=== PATIENT | female | born 1980 | race Caucasian/White ===

== ENCOUNTER 2022-11-28 10:25 | Outpatient (CLI) | payer OTHER, SELFPAY ==
--- NOTE | ~2022-11-28 | US_ITS ---
EXAMINATION: US pelvic complete w TV DATE: 11/28/2022 10:52 INDICATION: Heavy menstrual bleeding Comparison:Ultrasound dated 04/27/2004 TECHNIQUE: Multiple transabdominal and endovaginal sonographic images of the pelvis performed. FINDINGS: The uterus measures 7.6 x 4.2 x 4.5 cm. The endometrial complex measures 4 mm. The right ovary measures 1.9 x 1.3 x 1.5 cm and the left ovary measures 2.9 x 2.8 x 2.1 cm. There is a left ovarian cyst measuring 1.9 cm. There are small follicles in each ovary. Normal doppler signal in both ovaries. There is no free fluid in the pelvis. There are no abnormal masses seen on either side. IMPRESSION: 1. Left ovarian cyst measuring 1.9 cm. Reviewed, dictated and finalized at location B. TRIMMER
== END 2022-11-28 10:26 ==
PROVIDERS: PCP Physician Assistant; Visit Provider Obstetrics & Gynecology
DX: N92.0 Excessive and frequent menstruation with regular cycle (principal); N83.202 Unspecified ovarian cyst, left side
CPT/HCPCS: 76830; 76856

== ENCOUNTER 2025-08-14 00:40 | Day surgery (SDC) | payer OTHER, SELFPAY ==
[2025-07-31 11:27] VITALS: BMI 37.3
[2025-08-14 06:39] VITALS: BMI 39.2
[2025-08-14 06:42] VITALS: BP 151/94; PULSE 88; RESP 20; TEMP 36.5; O2SAT 99
--- NOTE | 2025-08-14 07:00 | WPDANESEPPF ---
Anes - Initial Pre Proc Eval Procedure: Operation Date: 08/14/25 08:00 Proposed Procedures p Screening Colonoscopy - Dayton Guillaume MD Date/Time: 08/14/25 07:00 Surgeon: Dayton Guillaume MD Pre Op Diagnosis: Screening Patient Data Age: 44 Gender: F Height: 1.78 m Weight: 123.9 kg Last Vital Signs Temp 36.5 C 08/14/25 06:42 Pulse 88 08/14/25 06:42 Resp 20 08/14/25 06:42 BP 151/94 H 08/14/25 06:42 Pulse Ox 99 08/14/25 06:42 O2 Del Method Room Air 08/14/25 06:42 Allergies Allergy/AdvReac Type Severity Reaction Status Date / Time amoxicillin Allergy Unknown Hives Verified 08/14/25 06:39 Home Medications ?Medication ?Instructions ?Recorded ?Confirmed ?Type multivitamin with minerals-folic tablet PO Q24H 07/31/25 History acid 120 mcg chewable tablet (Adult Multivitamin Gummies) omeprazole 20 mg capsule,delayed 20 mg PO DAILY 07/31/25 08/14/25 History release amlodipine 2.5 mg tablet mg 08/14/25 History Patient hx anesthesia problems: none Family hx anesthesia problems: none Results Review: All pre-operative results and documents have been reviewed as part of the pre-operative evaluation. [facility] Social History Social History Smoking status: Former smoker Alcohol intake: current Drinks per week: 5 Substance use: never Substance use type: does not use Living arrangements: with friend(s) Spiritual care concerns: No Anes - Eval Final PreProcedure Day of Procedure 08/14/25 07:00 Patient weight: obese Heart: regular rate and rhythm Lungs: clear to auscultation Airway: Mallampati scale class II Neurological: alert and oriented Last oral intake: >/= 8 hours ASA classification: II Emergent: no Anesthetic plan: proceed Anesthesia type and monitoring: general GIVS and standard monitoring Results Review: All pre-operative results and documents have been reviewed as part of the pre-operative evaluation. Informed Consent: The patient's anesthetic plan and its attendant risks and benefits were discussed with the patient/family/POA. Questions were solicited and answers provided to the satisfaction of the patient/family/POA.
[2025-08-14] MEDS: LACTATED RINGERS 1,000 ML 150 ML IV CONT (07:03)
--- NOTE | 2025-08-14 07:34 | PM.IMHP ---
H&P: HPI History of Present Illness Date/Time: 08/14/25 07:34 Chief Complaint: Screening colonoscopy Narrative: This is the patient's first colonoscopy. There are no GI symptoms and there is no family history of colorectal cancer. Review of Systems Review of Systems: All systems reviewed & are unremarkable except as noted in HPI and below [facility] Social History Social History Smoking status: Former smoker Alcohol intake: current Drinks per week: 5 Substance use: never Substance use type: does not use Living arrangements: with friend(s) Spiritual care concerns: No Meds Home Medications and Allergies Home Medications ?Medication ?Instructions ?Recorded ?Confirmed ?Type multivitamin with minerals-folic tablet PO Q24H 07/31/25 History acid 120 mcg chewable tablet (Adult Multivitamin Gummies) omeprazole 20 mg capsule,delayed 20 mg PO DAILY 07/31/25 08/14/25 History release amlodipine 2.5 mg tablet mg 08/14/25 History Allergies Allergy/AdvReac Type Severity Reaction Status Date / Time amoxicillin Allergy Unknown Hives Verified 08/14/25 06:39 Vital Signs Vital Signs - 24 hr 08/14/25 06:42 Temperature 97.7 F Pulse Rate 88 Respiratory Rate 20 Blood Pressure 151/94 H Pulse Oximetry 99 Oxygen Delivery Room Air Exam Const: General: cooperative and healthy appearing Resp: Effort & Inspection: normal respiratory effort and able to speak in complete sentences Auscultation: clear to auscultation bilaterally Cardio: Rate: regular rate Rhythm: regular rhythm GI: Inspection: normal to inspection GI Palp: No No hepatosplenomegaly present Auscultation: normal bowel sounds Rectal Exam: deferred Skin: General skin exam: normal color Psych: Appearance: grossly normal Mental Status: mental status grossly normal Assessment and Plan Assessment and plan (1) Encounter for screening colonoscopy: Code(s): Z12.11 - Encounter for screening for malignant neoplasm of colon Status: Acute Assessment and Plan: The patient is deemed a good candidate for the procedure. Consent signed. Will proceed.
[2025-08-14 08:20] VITALS: BP 120/76; PULSE 75; RESP 20; O2SAT 98
[2025-08-14 08:30] VITALS: BP 127/84; PULSE 68; RESP 20; O2SAT 100
[2025-08-14 08:40] VITALS: BP 129/87; PULSE 65; RESP 20; O2SAT 99
--- OUTSIDE RECORDS SUMMARY | 2025-08-14 16:00 | XMS_ITS | Encounter Summary ---
Author Organization [facility] Address [address] [place] [address] Care Team Providers Care Racing Secretary And Handicapper Name Role Phone Kesha Snow Primary Care Provider + [phone] Encounter Details Date Type Department Care Team (Late st Contact Info) Description 05/10/2022 [employer] Message Enc [facility] Family & Internal Medicine [facility] [id number] [place] [phone] [facility] Provider Lab work Social History Tobacco Use Types Packs/Day Years Used Date Smoking Tobacco: Former Cigarettes 0.3 1 1 11/2018 - 09/2020 Smokeless Tobacco: Never Alcohol Use Standard Drinks/Week Comments Yes 28.3 (1 standard drink = 0.6 oz pure alcohol) Socially PHQ-2 Answer Date Recorded PHQ-2 Score - If the patient scores above 3, please move on to questions 3-9 0 02/21/2022 Comments No Sex and Gender Information Value Date Recorded Sex Assigned at Not on file Legal Sex Female 11:05 AM RESEARCH INTERVIEWER Gender Identity Not on file Sexual Orientation Not on file documented as of this encounter Plan of Treatment Not on file documented as of this encounter Visit Diagnoses Diagnosis Encounter for surveillance of injectable contraceptive- Primary Surveillance of other previously prescribed contraceptive method documented in this encounter Care Teams Racing Secretary And Handicapper Relationship Specialty [place] [address] [place] [address] PCP - General PHYSICIAN FINANCIAL AIDS OFFICER 11/18/19 documented as of this encounter
--- OUTSIDE RECORDS SUMMARY | 2025-08-14 16:00 | XMS_ITS | Encounter Summary ---
Author Organization [facility] Address [address] [place] [address] Care Team Providers Care Personnel Director Name Role Phone Kesha Snow Primary Care Provider + [phone] Encounter Details Date Type Department Care Team (Late st Contact Info) Description 10/15/2022 [employer] Message Enc [facility] Family & Internal Medicine [facility] [id number] [place] [phone] Kesha Snow [place] [id number] [place], [place] [phone] cyst Social History Tobacco Use Types Packs/Day Years [...] on file Legal Sex Female 11:05 AM EXHAUST EMISSIONS INSPECTOR Gender Identity Not on file Sexual Orientation Not on file documented as of this encounter Plan of Treatment Not on file documented as of this encounter Visit Diagnoses Not on filedocumented in this encounter Care Teams Personnel Director Relationship Specialty Start Date End Date Kesha Snow [place] [id number] [place] [address] [place] [address] PCP - General PHYSICIAN ROTOR PLATE WASHER 11/18/19 documented as of this encounter
--- OUTSIDE RECORDS SUMMARY | 2025-08-14 16:00 | XMS_ITS | Encounter Summary ---
Author Organization [facility] Address [address] [place] [address] Care Team Providers Care Cloth Calender Name Role Phone Kesha Snow Primary Care Provider + [phone] Encounter Details Date Type Department Care Team (Late st Contact Info) Description 11/09/2022 [employer] Message Enc [facility] Medical Group Family & Internal Medicine [address] [address] Kesha Snow PA [address] [place] [address] Antibiotic Social History Tobacco Use Types Packs/Day Years Used Date Smoking Tobacco: Former Cigarettes 0.3 1 11/2018 - 09/2020 Smokeless Tobacco: Never [...] on file Legal Sex Female 11:05 AM OFFICE ADMINISTRATOR Gender Identity Not on file Sexual Orientation Not on file COVID-19 Exposure Response Date Recorded In the last 10 days, have yo u been in contact with someone who was confirmed or suspected to have Coronavirus/COVID-19? No / Unsure 11/09/2022 8:18 AM OFFICE ADMINISTRATOR documented as of this encounter Plan of Treatment Not on file documented as of this encounter Visit Diagnoses Not on filedocumented in this encounter Care Teams Cloth Calender Relationship Specialty [place] [address] [place] [address] PCP - General PHYSICIAN REFRIGERATED CARGO CLERK 11/18/19 documented as of this encounter
--- OUTSIDE RECORDS SUMMARY | 2025-08-14 16:00 | XMS_ITS | Encounter Summary ---
Author Organization [facility] Address [address] [place] [address] Care Team Providers Care Debarker Operator Name Role Phone Kesha Snow Primary Care Provider + [phone] Encounter Details Date Type Department Care Team (Late st Contact Info) Description 02/22/2022 SnapSense Message Enc [facility] Medical Group Family & Internal Medicine [facility] [phone] [place] [phone] Kesha Snow PA [address] [place] [address] control Social History Tobacco Use Types Packs/Day Years [...] on file Legal Sex Female 11: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 No / Unsure 02/21/2022 1:06 PM CDT documented as of this encounter Plan of Treatment Not on file documented as of this encounter Visit Diagnoses Diagnosis Magallon's esophagus with dysplasia- Primary Magallon's esophagus documented in this encounter Care Teams Debarker Operator Relationship Specialty [place] [address] [place] [address] PCP - General PHYSICIAN BREASTER 11/18/19 documented as of this encounter
--- OUTSIDE RECORDS SUMMARY | 2025-08-14 16:00 | XMS_ITS | Encounter Summary ---
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
--- OUTSIDE RECORDS SUMMARY | 2025-08-14 16:00 | XMS_ITS | Encounter Summary ---
Author Organization [facility] Address [address] [place] [address] Care Team Providers Care Coding Coordinator Name Role Phone Paulina Mcneill NP Primary Care Provider [phone] Courtney Baires NP Unavailable [phone] Encounter Details Date Type Department Care Team (Late st Contact Info) Description 07/22/2025 Results Follow-Up [facility] Medical Group Primary Care at [address] [address] Pan Avery MD [address] [place] [address] [address] [place] [address] CBC with auto differential, Differential, auto, LH, Additional followed-up results: 11 Social History Tobacco Use Types Packs/Day Years Used Date Smoking Tobacco: Former Cigarettes 0.3 5 0 10/09/2015 - 09/08/2020 Smokeless Tobacco: Never Comments:social Alcohol Use Standard Drinks/Week Comments Yes 12 (1 standard drink = 0.6 oz pu re alcohol) AUDIT-C Answer Date Recorded Frequency of Alcohol Consumption 4 or more times a week 05/16/2019 Average Number of Drinks 1 or 2 019 Frequency of Binge Drinking Never 05/2019 PHQ-2 Answer Date Recorded PHQ-2 Total Score (If total score is 3 or more points, staff should administer the PHQ-9) 0 07/22/2025 Comments No Sex and Gender Information Value Date Recorded Sex Assigned at Not on file Legal Sex Female 7:31 AM SWITCHBOARD OPERATOR RECEPTIONIST Gender Identity Female 07/22/2025 12:33 PM CDT Sexual Orientation Straight 07/22/2025 12 :33 PM CDT documented as of this encounter Functional Status * BP Location Answer Date of Assessment Author Left arm 07/22/2025 9:04 AM CDT Jenny Minaya MA * BP Location Answer Date of Assessment Author Left arm 07/22/2025 9:04 AM CDT Jenny Minaya MA documented as of this encounter Plan of Treatment Not on file documented as of this encounter Visit Diagnoses Not on filedocumented in this encounter Care Teams Coding Coordinator Relationship Specialty Start Date End Date Paulina Mcneill NP [address] [facility] [address] [place] [address] PCP - General Family Medicine 07/01/24 Courtney Baires NP [address] [place] [address] [address] [place] [address] Nurse Practitioner Obstetrics and Gynecology 07/22/25 documented as of this encounter
--- OUTSIDE RECORDS SUMMARY | 2025-08-14 16:00 | XMS_ITS | Encounter Summary ---
Author Organization [facility] Healthcare Address [address] [place] [address] Care Team Providers Care Administrative Director Name Role Phone Nadir Edgar MD Primary Care Provider Paulina Mcneill NP Primary Care Provider [phone] Courtney Baires NP Unavailable [phone] Encounter Details Date Type Department Care Team (Late st Contact Info) Description 06/16/2019 Documentation [facility] Case Management [address] [place] [address] Leslye Casey RN Social History Tobacco Use Types Packs/Day Years Used Date Smoking Tobacco: Former Cigarettes 2 002 - 05/16/2019 Smokeless Tobacco: Never Comments:social Alcohol Use Standard Drinks/Week Comments Yes 12 (1 standard drink = 0.6 oz pu re alcohol) AUDIT-C Answer Date Recorded Frequency of Alcohol Consumption 4 or more times a week 05/16/2019 Average Number of Drinks 1 or 2 019 Frequency of Binge Drinking Never 05/2019 Comments Unknown Sex and Gender Information Value Date Recorded Sex Assigned at Not on file Legal Sex Female 7:31 AM APPLICATION SPECIALIST Gender Identity Female 07/22/2025 12:33 PM CDT Sexual Orientation Straight 07/22/2025 12 :33 PM CDT documented as of this encounter Plan of Treatment Not on file documented as of this encounter Visit Diagnoses Not on filedocumented in this encounter Additional Health Concerns Infection Onset Date Last Indicated Resolved Time COVID: Suspected 10/03/2024 10/03/2024 10/03/2024 6:21 PM APPLICATION SPECIALIST COVID: Suspected 10/08/2024 10/08/2024 10/08/2024 8:50 AM APPLICATION SPECIALIST documented as of this encounter Care Teams Administrative Director Relationship Specialty Start Date End Date Nadir Edgar MD PCP - General Internal Medicine 02/04/19 06/30/24 Paulina Mcneill NP [address] [place] [address] PCP - General Family Medicine 07/01/24 Courtney Baires NP [address] [place] [address] [address] [place] [address] Nurse Practitioner Obstetrics and Gynecology 07/22/25 documented as of this encounter
--- OUTSIDE RECORDS SUMMARY | 2025-08-14 16:00 | XMS_ITS | Encounter Summary ---
Author Organization [facility] Address [address] [place] [address] Care Team Providers Care Window Glazier Name Role Phone Kesha Snow Primary Care Provider + [phone] Encounter Details Date Type Department Care Team (Late st Contact Info) Description 08/13/2022 [employer] Message Enc [facility] Medical Group Family & Internal Medicine [facility] [id number] [place] [phone] Kesha Snow PA [address] [place] [address] control Social History Tobacco Use Types [...] on file Legal Sex Female 11:05 AM CNC MILL PROGRAMMER Gender Identity Not on file Sexual Orientation Not on file documented as of this encounter Plan of Treatment Not on file documented as of this encounter Visit Diagnoses Diagnosis Encounter for initial prescription of contraceptive pills General counseling for prescription of oral contraceptives Magallon's esophagus with dysplasia Magallon's esophagus documented in this encounter Care Teams Window Glazier Relationship Specialty [place] [address] [place] [address] PCP - General PHYSICIAN INTENSIVE CARE ANAESTHETIST 11/18/19 documented as of this encounter
--- OUTSIDE RECORDS SUMMARY | 2025-08-14 16:00 | XMS_ITS | Clinical Summary ---
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 acidophilus-dig enz cmb 5 5-250 mg capsule Take by mouth Active multivitamin with minerals tablet Take 1 tablet by mouth daily Active amLODIPine (NORVASC) 5 mg tabletIndicatio ns:hypertension Take 1 tablet (5 mg total) by mouth daily 90 tablet 1 07/22/20 25 Active promethazine-DM (PROMETHAZINE-D M) 1.25-3 mg/mL syrupIndication s:Lower respiratory infection (e.g., bronchitis, pneumonia, pneumonitis, pulmonitis) Take 5-10 mL by mouth 4 (four) times a day as needed for cough 120 mL 10/03/20 24 025 Discontinued azithromycin (ZITHROMAX) 250 mg tabletIndicatio ns:Lower respiratory infection (e.g., bronchitis, pneumonia, pneumonitis, pulmonitis) Take 2 tablets the first day, then 1 tablet daily for 4 days. 6 tablet 10/03/20 24 025 Discontinued amLODIPine (NORVASC) 2.5 mg tablet Take 1 tablet (2.5 mg total) by mouth daily 90 tablet 1 01/30/20 25 025 Discontinued(Re order) Active Problems Problem Noted Date Diagnosed Date Primary hypertension 07/01/2024 Assessment & Plan (01/20/2025 9:40 AM CDT): BP slightly increased today in office, typically normal range at home. Will continue Amlodipine 2.5 mg daily and have pt send in home readings. Assessment & Plan (07/30/2024 1:14 PM CDT): Pt's home BP's much improved on Amlodipine. Stable in office today. Assessment & Plan (07/01/2024 2:00 PM CDT): Home BP's averaging in the 140's/88-90's. Asymptomatic. BP increased in office today, more diastolic vs systolic on repeat. Looking back at pt's previous annual visits through [facility], BP was borderline. Will start low dose Amlodipine for better balance and get some labs. Home BP log and follow up in 4 weeks. Anxiety 04/22/2020 Magallon's esophagus with dysplasia 04/22/2020 Obesity without serious comorbidity 04/22/2020 Other specified hypothyroidism 04/22/2020 Chronic pain of right knee 02/11/2019 Patellar dislocation 03/23/2015 Primary osteoarthritis of right knee 03/11/2013 Encounters Date Type Department Care Team Description 08/11/2025 7:47 AM SALES ASSOCIATE CASHIER - 08/11/2025 11:59 PM SALES ASSOCIATE CASHIER [place] [address] Breast cancer screening by mammogram Discharge Disposition: Discharge to home or self care 07/22/2025 9:40 AM CDT Lab [address] [address] Perimenopause; Need for hepatitis B screening test; Class 2 obesity due to excess calories without serious comorbidity with body mass index (BMI) of 38.0 to 38.9 in adult; Vitamin D deficiency; Other specified hypothyroidism; Primary hypertension 07/22/2025 9:00 AM CDT Office Visit [facility] Primary Care at [address] [address] Pan Avery MD Primary hypertension (Primary Dx); Other specified hypothyroidism; Class 2 obesity due to excess calories without serious comorbidity with body mass index (BMI) of 38.0 to 38.9 in adult; Encounter for administration of vaccine; Vitamin D deficiency; Breast cancer screening by mammogram; Need for hepatitis B screening test; Perimenopause 07/22/2025 Results Follow-Up [facility] Primary Care at [address] [address] Pan Avery MD CBC with auto differential, Differential, auto, LH, Additional followed-up results: 11 from Last 3 Months Immunizations Immunization Administration Dates Next Due Influenza, Quadrivalent, Spl it, Intramuscular 08/29/2016 Influenza, Quadrivalent, Spl it, Preservative Free, Intramuscular 07/06/2023,08/04/2022,07/15/2021,07/16,08/30/2019,07/12/2018 Influenza, Trivalent, IM (MDV) 08/01/2013 Influenza, Trivalent, Preser vative Free, Intramuscular 07/22/2025,08/01/2024 Influenza, Unspecified 10/09/2023,2022,07/15/2021,07/16,07/09/2020,08/30/2019,08/01/2013 Pfizer SARS-CoV-2 Monovalent Vaccination (12+ Yrs) PURPLE 01/08/2021,12/15/2020 Tdap 11/18/2019 Surgical History Surgery Date Site/Laterality Comments COSMETIC SURGERY 1984 birthmark removal age 3 WISDOM TOOTH EXTRACTION FLUORO GUIDED INJECTION KNEE RIGHT 02/21/2019 Right JOINT REPLACEMENT 2018 Right ENDOMETRIAL ABLATION Medical History Medical History Date Comments GERD (gastroesophageal reflux disease) 2007 Hiatal hernia Arthritis 2012 Hypertension 06/24/24 Family History Medical History Relation Name Comments Arthritis Father Jacek Family history of arthritis - (Added by TW Conv) Hypertension Father Jacek Family history of hypertension - (Added by TW Conv) Stroke Father Jacek Family history of cerebrovascular accident - (Added by TW Conv) Arthritis Mother Ge[place]ne Family history of arthritis - (Added by TW Conv) Hypertension Mother Georganne Family history of hypertension - (Added by TW Conv) Anesthesia problems Neg Hx Relation Name Status Comments Father Jacek Mother James Social History Tobacco Use Types Packs/Day Years Used Date Smoking Tobacco: Former Cigarettes 0.3 5 0 10/09/2015 - 09/08/2020 Smokeless Tobacco: Never Tobacco Cessation:Counseling Given: Yes Comments:social Alcohol Use Standard Drinks/Week Comments Yes [...] on file Legal Sex Female 7:31 AM SALES ASSOCIATE CASHIER Gender Identity Female 07/22/2025 12:33 PM CDT Sexual Orientation Straight 07/22/2025 12 :33 PM CDT Obstetrics History Para Term AB IAB SAB Ectopic Multiple Livin g Live Births 0 0 0 0 0 0 0 0 0 0 0 Last Filed Vital Signs Vital Sign Reading Time Taken Comments Blood Pressure 134/84 07/22/2025 9:04 AM CDT Pulse 91 07/22/2025 9:04 AM CDT Temperature 36.2 C (97.1 F) 07/22/2025 9:04 AM CDT Respiratory Rate 18 07/22/2025 9:04 AM CDT Oxygen Saturation 98% 07/22/2025 9:04 AM CDT Inhaled Oxygen Concentration - - Weight 122.9 kg (270 lb 15.1 oz) 08/11/2025 8:00 AM SALES ASSOCIATE CASHIER Height 177.8 cm (5' 10) 08/11/2025 8:00 AM SALES ASSOCIATE CASHIER Body Mass Index 38.88 08/11/2025 8:00 AM SALES ASSOCIATE CASHIER Plan of Treatment Health Maintenance Due Date Last Done Comments Varicella Vaccines (1 of 2 - 13+ 2-dose series) 12/23/1992 Hepatitis B Screening 12/23/1997 Pneumococcal vaccine <65 (1 of 2 - PCV) 12/23/1998 HPV Vaccines (1 - 3-dose SCDM series) 12/23/2006 Covid-19 Vaccine ( season) 2025 10/05/2021, 01/08/2021, 12/15/2020 Regular Well Visit/Exam 18-64 01/20/2026 01/20/2025 Depression Screening 07/22/2026 07/22/2025, 01/20/2025, 07/30/2024, Additional history exists Breast Cancer Screening-Mammogram 08/11/2026 08/11/2025, 08/06/2024 Cervical Cancer Screening 10/08/2026 Po stponed from 1979 (Patient declined, but will receive in the future) DTaP/Tdap/Td Vaccine (2 - Td or Tdap) 11/18/2029 11/18/2019 Colon Cancer Screening-Colonoscopy 08/14/2035 08/14/2025 Hepatitis C Screening Completed 07/01/2024 Influenza Vaccine Completed 07/22/2025, , 10/09/2023, Additional history exists Medical Devices Implanted Type Area Air Carrier Operations Inspector Device Identifier Shelf Expiration Date Model / Serial / Lot Latia Helpa [id number] Persona 2 Peg Knee Right F Baseplate Tibial Trabecular Metal - [id number] Implanted:Qty: 1 on 06/14/2019 by Kendall Panchal MD at [facility] [employer] 02/05/2029 [id number] / / [id number] [employer] [id number] Persona Cruciate Retaining Knee Right 11 Standard Component - [id number] Implanted:Qty: 1 on 06/14/2019 by Kendall Panchal MD at [facility] [employer] [id number] 08/08/2028 [id number] / / [id number] [employer] [id number] Persona 16mm Knee Insert Articular Vivacit-E Sterile Latex Free - [id number] Implanted:Qty: 1 on 06/14/2019 by Kendall Panchal MD at [facility] [employer] [id number] 05/08/2023 [id number] / / [id number] Procedures Procedure Name Priority Date/Time Associated Diagnosis Comments HM COLONOSCOPY Routine 08/14/2025 10:13 AM SALES ASSOCIATE CASHIER SCREENING MAMMOGRAM BILATERAL W WIL Schedule Routine, Read Routine (OP Routine) 08/11/2025 8:20 AM SALES ASSOCIATE CASHIER Breast cancer screening by mammogram EGFR Routine 07/22/2025 9:44 AM CDT Primary hypertension DIFFERENTIAL AUTO Routine 07/22/2025 9:4 4 AM CDT Primary hypertension ESTRADIOL Routine 07/22/2025 9:44 AM CDT Perimenopause CBC WITH AUTO DIFFERENTIAL Routine 07/22/2025 9:44 AM CDT Primary hypertension COMPREHENSIVE METABOLIC PANEL Routine 07/22/2025 9:44 AM CDT Primary hypertension LIPID PANEL Routine 07/22/2025 9:44 AM CDT Primary hypertension THYROID FUNCTION CASCADE Routine 07/22/2025 9:44 AM CDT Other specified hypothyroidism VITAMIN D 25 HYDROXY Routine 07/22/2025 9:44 AM CDT Class 2 obesity due to excess calories without serious comorbidity with body mass index (BMI) of 38.0 to 38.9 in adult Vitamin D deficiency FOLLICLE STIMULATING HORMONE Routine 07/22/2025 9:44 AM CDT Perimenopause LUTEINIZING HORMONE (LH) Routine 07/22/2025 9:44 AM CDT Perimenopause HEPATITIS B SURFACE ANTIGEN Routine 07/22/2025 9:44 AM CDT Need for hepatitis B screening test HEPATITIS B SURFACE ANTIBODY (IMMUNE STATUS) Routine 07/22/2025 9:44 AM CDT Need for hepatitis B screening test HEPATITIS B CORE ANTIBODY, TOTAL Routine 07/22/2025 9:44 AM CDT Need for hepatitis B screening test HEPATITIS C ANTIBODY Routine 07/01/2024 1:57 PM CDT Encounter for hepatitis C screening test for low risk patient from Last 3 Months or Most Recently Relevant to Health Maintenance Results * HM COLONOSCOPY (08/14/2025 10:13 AM SALES ASSOCIATE CASHIER) Historical Provider HEALTH MAINTENANCE Final Result * SCREENING MAMMOGRAM BILATERAL W WIL (08/11/2025 8:20 AM SALES ASSOCIATE CASHIER) Anatomical Region Laterality Modality Breast Bilateral Mammography Impressions 08/13/2025 2:28 PM SALES ASSOCIATE CASHIER Bilateral No evidence of malignancy in either breast. OVERALL BI-RADS FINAL ASSESSMENT: 1 - Negative RECOMMENDATION: Recommend bilateral annual screening mammography. Narrative 08/13/2025 2:28 PM SALES ASSOCIATE CASHIER EXAMINATION: SCREENING MAMMOGRAM BILATERAL W WIL: 08/11/2025 COMPARISON: Relevant prior studies available at the time of interpretation were reviewed, including the most recent mammogram on: 08/06/2024. TECHNIQUE: Mammography was performed with 2D and 3D digital breast tomosynthesis (DBT) images. CAD was utilized. BREAST PARENCHYMAL COMPOSITION: There are scattered areas of fibroglandular density. FINDINGS: Bilateral There is no suspicious mass, calcification, or architectural distortion in either breast. Pan Avery MD IMG MAMMO PROCEDURES Final Result * eGFR (07/22/2025 9:44 AM CDT) eGFR >90 >=60 mL/min/1. 73 m2 Comment: Interpretive Data Reference Interval Normal >/= 90 mL/min/1.73m2 Mildly decreased* 60 - 89 mL/min/1.73m2 Mildly to moderately decreased 45 - 59 mL/min/1.73m2 Moderately to severely decreased 30 - 44 mL/min/1.73m2 Severely decreased 15 - 29 mL/min/1.73m2 Kidney Failure < 15 mL/min/1.73m2 *Relative to young adult level Estimated glomerular filtration rate is determined by the 2020 CKD-EPI equation recommended by the National Kidney Foundation (A Unifying Approach to GFR Estimation: Recommendations of the NKF-ASK Task Force on Reassessing the Inclusion of Race in Diagnosing Kidney Disease, JASN 2020). The CKD-EPI equation should not be used for patients with unstable renal function and has not been validated in children and those over 70. Current interpretive data was last reviewed 2021. Blood 07/22/2025 9:44 AM CDT 07/22/2025 2:28 PM CDT Pan Avery MD LAB BLOOD ORDERABLES Final Result [place] [id number] [facility] [place] [address] * (ABNORMAL) Differential, auto (07/22/2025 9:44 AM CDT) Neutrophil abs 4.67 1.50 - 6.50 K/cumm Imm gran abs 0.02 0.00 - 0.10 K/cumm [facility] Lymphocyte abs 2.60 0.80 - 3.30 K/cumm [facility] Monocyte abs 0.63 0.20 - 0.80 K/cumm [facility] Eosinophil abs 0.57(H) 0.00 - 0.50 K/cumm [facility] Basophil abs 0.09 0.00 - 0.10 K/cumm [facility] Neutrophil pct 54.6 % [facility] Comment: Interpretive Data Percent cell count reference ranges are not reported, since discordance with absolute values may lead to misinterpretation of CBC data. Current Interpretive Data was last revised on 2018. Imm gran pct 0.2 % [facility] Comment: Interpretive Data Percent cell count reference ranges are not reported, since discordance with absolute values may lead to misinterpretation of CBC data. Current Interpretive Data was last revised on 2018. Lymphocyte pct 30.3 % [facility] Comment: Interpretive Data Percent cell count reference ranges are not reported, since discordance with absolute values may lead to misinterpretation of CBC data. Current Interpretive Data was last revised on 2018. Monocyte pct 7.3 % [facility] Comment: Interpretive Data Percent cell count reference ranges are not reported, since discordance with absolute values may lead to misinterpretation of CBC data. Current Interpretive Data was last revised on 2018. Eosinophil pct 6.6 % [facility] Comment: Interpretive Data Percent cell count reference ranges are not reported, since discordance with absolute values may lead to misinterpretation of CBC data. Current Interpretive Data was last revised on 2018. Basophil pct 1.0 % [facility] Comment: Interpretive Data Percent cell count reference ranges are not reported, since discordance with absolute values may lead to misinterpretation of CBC data. Current Interpretive Data was last revised on 2018. Blood 07/22/2025 9:44 AM CDT 07/22/2025 11:18 AM CDT Pan Avery MD LAB BLOOD ORDERABLES Final Result Performing Organization Address City/[facility] Co de Phone Number [address] [place] [employer] [address] * Thyroid Function [place] (07/22/2025 9:44 AM CDT) Pathologist [facility] TSH 2.46 0.30 - 4.20 mcIUnit/mL Blood 07/22/2025 9:44 AM CDT 07/22/2025 2:28 PM CDT Pan Avery MD LAB BLOOD ORDERABLES Final Result Performing Organization Address [place]/[facility] Co de Phone Number [address] [address] * CBC with auto differential (07/22/2025 9:44 AM CDT) Pathologist [facility] WBC 8.58 3.80 - 9.90 K/cumm Hgb 14.7 11.9 - 15.5 g/dL [facility] Hct 44.4 35.6 - 45.5 % [facility] Plt 245 150 - 400 K/cumm [facility] MPV 10.2 9.1 - 12.3 fL [facility] RBC 4.98 3.90 - 5.20 M/cumm [facility] MCV 89.2 81.3 - 96.4 fL [facility] MCH 29.5 27.1 - 33.3 pg [facility] MCHC 33.1 32.3 - 35.7 g/dL [facility] RDW CV 13.5 11.1 - 14.9 % [facility] RDW SD 43.9 35.7 - 48.1 fL [facility] NRBC abs 0.00 0.00 - 0.01 K/cumm [facility] Blood 07/22/2025 9:44 AM CDT 07/22/2025 11:18 AM CDT Pan Avery MD LAB BLOOD ORDERABLES Final Result [address] [place] [address] * Hepatitis B core antibody, total Blood (07/22/2025 9:44 AM CDT) Pathologist [facility] Hep B core IgG/IgM Nonreactive Nonreactive Comment:Testing performed by : [facility], [address] [place]., [address] Blood 07/22/2025 9:44 AM CDT 07/22/2025 5:33 PM CDT Pan Avery MD LAB MICROBIOLOGY - GENERAL ORDERABLES Final Result [address] [place] [address] * Vitamin D 25 hydroxy (07/22/2025 9:44 AM CDT) Pathologist [facility] Vitamin D 25-OH 39.0 30.0 - 80.0 ng/mL Blood 07/22/2025 9:44 AM CDT 07/22/2025 2:28 PM CDT Pan Avery MD LAB BLOOD ORDERABLES Final Result [address] [place] [address] * Estradiol (07/22/2025 9:44 AM CDT) Pathologist [facility] Estradiol 59.0 pg/mL Comment: Interpretive Data Males: 11 43 pg/mL Females: Premenopausal: 31 533 pg/mL Postmenopausal: < 50 pg/mL Patients treated with Fluvestrant (Faslodex) should be tested using an alternate assay such as LC-MS due to potential for cross-reactivity. Estradiol varies widely throughout the menstrual cycle. Current interpretive data was last revised 2024. Blood 07/22/2025 9:44 AM CDT 07/22/2025 2:28 PM CDT Pan Avery MD LAB BLOOD ORDERABLES Final Result Performing Organization Address [facility] de Phone Number [address] [address] * Hepatitis B surface antibody (immune status) Blood (07/22/2025 9:44 AM CDT) Pathologist [facility] HBsAb (immune status) Reactive Comment: Interpretive Data Nonreactive: This result is consistent with a lack of immunity to Hepatitis B Virus when used in the setting of routine screening. Equivocal: The immune status of the individual should be further assessed, if appropriate, after consideration of clinical status, risk factors, and additional diagnostic information. Reactive: This result is consistent with immunity to Hepatitis B Virus when used in the setting of routine screening. Current interpretive data was last revised on 19. HBsAb (immune status) index >1,000.0 mIUnits/m L LONNIE Blood 07/22/2025 9:44 AM CDT 07/22/2025 2:28 PM CDT Pan Avery MD LAB MICROBIOLOGY - GENERAL ORDERABLES Final Result Performing Organization Address [facility] Co de Phone Number [address] [address] * Hepatitis B Surface Antigen Blood (07/22/2025 9:44 AM CDT) HepBsAg Nonreactive Nonreactive Blood 07/22/2025 9:44 AM CDT 07/22/2025 2:28 PM CDT Pan Avery MD LAB MICROBIOLOGY - GENERAL ORDERABLES Final Result Performing Organization Address [facility] Co de Phone Number [address] [employer] [place] [address] * LH (07/22/2025 9:44 AM CDT) Pathologist [facility] LH 7.3 mIUnits/mL Comment: Interpretive Data Males: Adults: 1.7 - 8.6 IUnits/L Females: Follicular: 2.4 - 12.6 IUnits/L Ovulation: 14.0 - 95.6 IUnits/L Luteal: 1.0 - 11.4 IUnits/L Postmenopausal: 7.7 - 58.5 IUnits/L Current interpretive data was last revised on 2019. Blood 07/22/2025 9:44 AM CDT 07/22/2025 2:28 PM CDT Pan Avery MD LAB BLOOD ORDERABLES Final Result Performing Organization Address [facility] Co de Phone Number [address] [email or web address] [place] [address] * Follicle stimulating hormone (07/22/2025 9:44 AM CDT) Pathologist [facility] FSH 5.6 1.5 - 12.4 IUnits/L Blood 07/22/2025 9:44 AM CDT 07/22/2025 2:28 PM CDT Pan Avery MD LAB BLOOD ORDERABLES Final Result Performing Organization Address [facility] Co de Phone Number [address] [place] [address] * (ABNORMAL) Lipid panel (07/22/2025 9:44 AM CDT) Cholesterol 200(H) 30 - 199 mg/dL Comment: Interpretive Data Ages < or = 19 years Acceptable: <170 mg/dL Borderline high: 170-199 mg/dL High: >or= 200 mg/dL Ages > or = 20 years Desirable: <200 mg/dL Borderline high: 200-239 mg/dL High: >or= 240 mg/dL Literature References: 1. Expert Panel on Integrated Guidelines for Cardiovascular Health and Risk Reduction in Children and Adolescents. Pediatrics 2011;128:S213 2. NCEP Expert Panel. Circulation 2004;110:227 Current Interpretive Data was last revised on 2018. Triglycerides 186(H) <=149 mg/dL LONNIE MARTINI Comment: Interpretive Data Ages < or = 9 years Acceptable: <75 mg/dL Borderline high: 75-99 mg/dL High: >or= 100 mg/dL Ages 10 to 20 years Acceptable: <90 mg/dL Borderline high: 90-129 mg/dL High: >or= 130 mg/dL Ages > or = 20 years Desirable: <150 mg/dL Borderline high: 150-199 mg/dL High: 200-499 mg/dL Very high: >or= 499 mg/dL Literature References: 1. Expert Panel on Integrated Guidelines for Cardiovascular Health and Risk Reduction in Children and Adolescents. Pediatrics 2011;128:S213 2. NCEP Expert Panel. Circulation 2004;110:227 Current Interpretive Data was last revised on 2018. HDL 62 >=40 mg/dL LONNIE MARTINI Comment: Interpretive Data Ages < or = 19 years Acceptable: >45 mg/dL Borderline low: 40-45 mg/dL Low: <40 mg/dL Ages > or = 20 years Desirable: >or= 60 mg/dL Low: <40 mg/dL Literature References: 1. Expert Panel on Integrated Guidelines for Cardiovascular Health and Risk Reduction in Children and Adolescents. Pediatrics 2011;128:S213 2. NCEP Expert Panel. Circulation 2004;110:227 Current Interpretive Data was last revised on 2018. LDL, calculated 106 <=129 mg/dL LONNIE MARTINI Comment: Interpretive Data Ages < or = 19 years Acceptable: <110 mg/dL Borderline high: 110-129 mg/dL High: >or= 130 mg/dL Ages > or = 20 years Optimal: <100 mg/dL Near optimal: 100-129 mg/dL Borderline high: 130-159 mg/dL High: >160 mg/dL Calculated using the Regan LDL-C estimating equation. This equation was implemented on 2024. Prior to this date LDL-C was estimated using the Friedewald equation. Literature References: 1. Expert Panel on Integrated Guidelines for Cardiovascular Health and Risk Reduction in Children and Adolescents. Pediatrics 2011;128:S213 2. NCEP Expert Panel. Circulation 2004;110:227 3. Regan M et al. AMARILYS Cardiol. 2019February 06;5(5):540-548. doi: 10.1001/[email or web address].2020.0013 Current Interpretive Data was last revised on 2024. Non-HDL Cholesterol 138 mg/dL LONNIE MARTINI Comment: Interpretive Data Ages < or = 19 years Acceptable: <120 mg/dL Borderline high: 120-144 mg/dL High: >145 mg/dL Ages > or = 20 years When triglycerides are >200 mg/dL, Non-HDL cholesterol is a secondary target of therapy with treatment goals that are 30 mg/dL greater than the LDL cholesterol target. Literature References: 1. Expert Panel on Integrated Guidelines for Cardiovascular Health and Risk Reduction in Children and Adolescents. Pediatrics 2011;128:S213 2. NCEP Expert Panel. Circulation 2004;110:227 Current Interpretive Data was last revised on 2018. Chol/HDL ratio 3 LONNIE MARTINI Blood 07/22/2025 9:44 AM CDT 07/22/2025 2:28 PM CDT us Pan Avery MD LAB BLOOD ORDERABLES Final Result LONNIE MARTINI [address] [facility] Department [place] [address] * Comprehensive metabolic panel (07/22/2025 9:44 AM CDT) Sodium 137 135 - 145 mmol/L Potassium, pl 4.0 3.3 - 4.9 mmol/L [facility] Chloride 101 97 - 110 mmol/L [facility] CO2 25 22 - 32 mmol/L [facility] Anion gap 11 2 - 15 mmol/L [facility] BUN 12 6 - 25 mg/dL [facility] Creatinine 0.73 0.60 - 1.10 mg/dL [facility] Glucose 101 70 - 199 mg/dL [facility] Comment: Interpretive Data Fasting glucose >/= 126 mg/dl is diagnostic for diabetes. Fasting is defined as no caloric intake for at least 8 hours. Fasting glucose between 100 mg/dl to 125 mg/dl is diagnostic of prediabetes. In a patient with classic symptoms of hyperglycemia or hyperglycemic crisis, a random glucose >/= 200 mg/dl is diagnostic for diabetes. In the absence of unequivocal hyperglycemia, results should be confirmed by repeat testing. The classification and Diagnosis of Diabetes Diabetes Care 202; 46: S19-S40. Current interpretive data was last revised 2022. Calcium 9.5 8.5 - 10.3 mg/dL [facility] Bilirubin, total 0.5 0.1 - 1.2 mg/dL [facility] Protein, pl 7.6 6.5 - 8.5 g/dL [facility] Albumin 4.2 3.5 - 5.0 g/dL [facility] Alk phos 75 40 - 130 Units/L [facility] ALT 32 7 - 45 Units/L [facility] [facility] 31 10 - 45 Units/L [facility] Blood 07/22/2025 9:44 AM CDT 07/22/2025 2:28 PM CDT Pan Avery MD LAB BLOOD ORDERABLES Final Result [facility] [address] [facility] Department [place] [address] * Hepatitis C antibody Blood (07/01/2024 1:57 PM CDT) Hep C Ab Nonreactive Nonreactive Comment: Interpretive Data Nonreactive: Antibodies to HCV not detected. Does NOT exclude the possibility of recent exposure to HCV. Equivocal: Equivocal for HCV antibodies. Supplemental molecular testing will be automatically performed to determine infection status in accordance with current CDC screening recommendations. Reactive: Positive for HCV antibodies. This may represent current or past HCV infection. Supplemental molecular testing will be automatically performed to determine current infection status in accordance with current CDC screening recommendations. Interpretive data was last revised on 2019. Blood 07/01/2024 1:57 PM CDT 07/01/2024 7:21 PM CDT Paulina Mcneill NP LAB MICROBIOLOGY - GENERAL ORDER MARJORIE Final Result [facility] [address] Department [place] [address] from Last 3 Months or Most Recently Relevant to Health Maintenance Insurance [facility] CHOICE PLUS [facility] [employer] [facility] CHOICE PLUS [facility] [employer] Advance Directives For more information, please contact: [phone] * Full Code (Latest Code Status on File) Date Activated Date Inactivated Comments 06/14/2019 2:59 PM 06/15/2019 4:18 PM Care Teams Imaging Nurse Relationship Specialty Start Date End Date Paulina Mcneill NP [address] [facility] [address] [place] [address] PCP - General Family Medicine 07/01/24 Courtney Baires NP [address] [place] [address] [place] [id number] Nurse Practitioner Obstetrics and Gynecology 07/22/25
--- OUTSIDE RECORDS SUMMARY | 2025-08-14 16:00 | XMS_ITS | Clinical Summary ---
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 90 capsule 08/22/2022 Active Multiple Vitamins-Minera ls (HAIR SKIN AND NAILS FORMULA OR) Active Active Problems Problem Noted Date Diagnosed Date Other specified hypothyroidism 04/22/2020 Obesity without serious comorbidity 04/22/2020 Magallon's esophagus with dysplasia 04/22/2020 Anxiety 04/22/2020 Chronic pain of right knee 02/11/2019 Patellar dislocation 03/23/2015 Primary osteoarthritis of right knee 03/11/2013 Immunizations Immunization Administration Dates Next Due Fluzone Adult - >Age 3 (Pref illed Syringe) 07/09/2020 Influenza (Generic) 07/09/2020,08/01/2013 Influenza Adult (Generic) 07/15/2021,05/2020,08/30/2019,2017,08/29/2016 PFIZER COVID-19 (ORIGINAL FORMULATION, PURPLE CAP) mRNA, LNP-S, PF, 30 MCG/0.3 ML DOSE 01/15/2021,12/16/2020 Tdap (Adacel) 11/18/2019 Family History Medical History Relation Comments Arthritis Father Hypertension Father Stroke Father happened in 1989 Cancer Maternal Grandmother Arthritis Mother Hyperlipidemia Mother Osteoporosis Mother Diabetes Paternal Aunt Heart Disease Paternal Grandmother Relation Status Comments Father Maternal Grandmother Mother Paternal Aunt Paternal Grandmother Social History Tobacco Use Types Packs/Day Years Used Date Smoking Tobacco: Former Cigarettes 0.3 1 1 11/2018 - 09/2020 Smokeless Tobacco: Never Tobacco Cessation:Counseling Given: Yes Alcohol Use Standard Drinks/Week Comments Yes 13.3 (1 standard drink = 0.6 oz pure alcohol) Socially PHQ-2 Answer Date Recorded PHQ-2 Score - If the patient scores above 3, please move on to questions 3-9 0 02/21/2022 Comments No Sex and Gender Information Value Date Recorded Sex Assigned at Not on file 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 Gender Identity Not on file Sexual Orientation Not on file Last Filed Vital Signs Vital Sign Reading Time Taken Comments Blood Pressure 132/82 07/04/2023 11:10 AM CDT Pulse 67 07/04/2023 10:35 AM CDT Temperature 37.1 C (98.8 F) 07/04/2023 10:35 AM CDT Respiratory Rate 16 07/04/2023 10:35 AM CDT Oxygen Saturation 100% 07/04/2023 10:35 AM CDT Inhaled Oxygen Concentration - - Weight 111.1 kg (245 lb) 07/04/2023 10:35 AM CDT Height 177.8 cm (5' 10) 07/04/2023 10:35 AM CDT Body Mass Index 35.15 07/04/2023 10:35 AM CDT Plan of Treatment Health Maintenance Due Date Last Done Comments Colorectal Cancer Screening Colonoscopy (10 Years) 1979 EGD-Magallon's Surveillance 1979 Hepatitis B Vaccines (1 of 3 - 19+ 3-dose series) 12/23/1998 HPV Vaccines (1 - 3-dose SCDM series) 12/23/2006 Mammogram Screening 2019 Cervical Cancer Screening Pap Smear (Age 30 to 64) Every 3 Years 02/05/2024 02/04/2021, 02/14/2020 Annual Physical 07/04/2024 07/04/2023, 02/06, 02/04/2021, Additional history exists COVID-19 Vaccine ( season) 2025 10/05/2021, 01/15/2021, 12/16/2020 Influenza Adult (#1) 2025 07/15/2021, 07/16/2020, 07/09/2020, Additional history exists Cervical Cancer Screening Pap with HPV Testing (Age 30 to 64) Every 5 Years 02/04/2026 02/04/2021 Cervical Cancer Screening with HPV 02/04/2026 DTaP, Tdap and Td Vaccines (2 - Td or Tdap) 11/18/2029 11/18/2019 Hepatitis C Completed 02/24/2022 Hepatitis A Vaccines Aged Out No long er eligible based on patient's age to complete this topic Meningococcal B Vaccine Aged Out No l onger eligible based on patient's age to complete this topic Meningococcal Vaccine Aged Out No raffi elijah eligible based on patient's age to complete this topic Pneumococcal Vaccine: Pediatrics (0 to 5 Years) and At-Risk Patients (6 to 49 Years) Aged Out No longer eligible based on patient's age to complete this topic RSV Immunizations Under 20 Months Aged Out No longer eligible based on patient's age to complete this topic Procedures Procedure Name Priority Date/Time Associated Diagnosis Comments HEPATITIS C ANTIBODY W/RFX TO HCV RNA Routine 02/24/2022 7:31 AM CDT Encounter for hepatitis C screening test for low risk patient THINPREP PAP W AGE BASED SCREENING PROTOCOLS Routine 02/04/2021 3:45 PM CDT Cervical cancer screening from Last 3 Months or Most Recently Relevant to Health Maintenance Results * HEPATITIS C ANTIBODY ([facility] ONLY) (02/24/2022 7:31 AM CDT) HEPATITIS C AB NON-REACTI VE NON-REACT VANNESA [facility] SIGNAL TO CUTOFF 0.01 <[address] [facility] Comment: HCV antibody was non-reactive. There is no laboratory evidence of HCV infection. In most cases, no further action is required. However, if recent HCV exposure is suspected, a test for HCV RNA (test code 72873) is suggested. For additional information please refer to http://education.SmartPill/faq/XKF01i5 (This link is being provided for informational/ educational purposes only.) 02/24/2022 7:31 AM CDT 02/24/2022 7:33 AM CDT Narrative [facility] - 03/02/2022 4:17 PM CDT FASTING:YES FASTING: YES Kesha SAHA LABORATORY Final Result [facility] [address] [id number] * THINPREP PAP W AGE BASED SCREENING ([facility] ONLY) (02/04/2021 3:45 PM CDT) Comment: [facility] Comment: This order for age-based cervical cancer and STI screening follows ACOG guidelines(PB 168, 140, INC333). See individual assays for performing site location. CLINICAL INFORMATION: Information not provided [facility] Clinical Information: INFORMATION NOT PROVIDED [facility] Date of Last Pap INFORMATION NOT PROVIDED [facility] Previous Biopsy? INFORMATION NOT PROVIDED [facility] SOURCE (QST) Cervix [facility] STATEMENT OF ADEQUACY: [facility] Comment: Satisfactory for evaluation. Endocervical/transformation zone component absent. Age and/or menstrual status not provided PAP INTERPRETATION/RES ULTS Negative for intraepithelial lesion or malignancy. [facility] COMMENT: This Pap test has been evaluated with computer assisted technology. [facility] FLOOR WAXER [facility] Comment: SALINA, CT(ASCP) CT screening location: [place] [address] [place] [address] COMMENT: [facility] Comment: EXPLANATORY NOTE: The Pap is a screening test for cervical cancer. It is not a diagnostic test and is subject to false negative and false positive results. It is most reliable when a satisfactory sample, regularly obtained, is submitted with relevant clinical findings and history, and when the Pap result is evaluated along with historic and current clinical information. HPV MRNA E6/E7 Not Detected Not Detected [facility] Comment: Methodology: Disciplinary Hearing Officer-Mediated Amplification This assay detects E6/E7 viral messenger RNA (mRNA) from 14 high-risk HPV types (16,18,31,33,35,39,45,51,52,56,58,59,66,68). The analytical performance characteristics of this assay have been determined by [employer]. The modifications have not been cleared or approved by the FDA. This assay has been validated pursuant to the CLIA regulations and is used for clinical purposes. For additional information, please refer to http://education.SmartPill/faq/FPA054v2 (This link if provided for information/ educational purposes only.) 02/04/2021 3:45 PM CDT 02/05/2021 5:33 AM CDT us Kesha SAHA PATHOLOGY/CYTOLOGY ORDERABLE S Final Result [facility] [address] [place] [address] [employer] [facility] [address] [place] [address] from Last 3 Months or Most Recently Relevant to Health Maintenance Insurance [facility] Care Teams Sand Cutting Machine Operator Relationship Specialty Start [place] [address] [place] [address] PCP - General PHYSICIAN LENS GRINDER 11/18/19
== END 2025-08-14 08:55 | disposition home or self-care (01) ==
PROVIDERS: PCP Nurse Practitioner Family; Visit Provider Internal Medicine Gastroenterology
PROC: 0DJD8ZZ Inspection of Lower Intestinal Tract, Via Natural or Artificial Opening Endoscopic (ICD-10-PCS; CPT 45378; principal; 2025-08-14 08:00)
DX: Z12.11 Encounter for screening for malignant neoplasm of colon (principal); K57.30 Diverticulosis of large intestine without perforation or abscess without bleeding; E66.9 Obesity, unspecified; Z68.39 Body mass index [BMI] 39.0-39.9, adult; Z87.891 Personal history of nicotine dependence
CPT/HCPCS: 45378; J2704; J7120